=== PATIENT | female | born 1950 | race Caucasian/White ===

== ENCOUNTER 2020-07-18 12:27 | Outpatient (NON) | payer MEDICARE, SELFPAY ==
[2020-07-18 23:24] LABS: SARS-CoV-2 RNA PCR Positive
== END 2020-07-18 12:28 ==
PROVIDERS: PCP Family Medicine; Visit Provider Physician Assistant
DX: U07.1 COVID-19 (principal)
CPT/HCPCS: 87635; C9803; U0003

== ENCOUNTER 2020-09-04 09:41 | Outpatient (CLI) | payer MEDICARE, SELFPAY ==
--- NOTE | ~2020-09-04 | MM_ITS ---
EXAMINATION: MM screening janett BI w piedad HISTORY: Screening mammogram TECHNIQUE: Craniocaudal and mediolateral oblique 3-D tomosynthesis images were obtained and synthetic 2-D images were generated. CAD analysis was submitted and interpreted. COMPARISON: 12/12/2018, 12/09/2017, 12/08/2016 and lateral digital screening mammogram examinations BREAST PARENCHYMAL COMPOSITION: There are scattered areas of fibroglandular density. FINDINGS: There is no evidence of suspicious mass, calcification, or architectural distortion to sugg est malignancy in either breast. There has been no suspicious interval change. IMPRESSION: 1. No mammographic evidence of malignancy. 2. Recommend routine screening mammography in one year. BI-RADS Category 1: Negative Reviewed, dictated and finalized at location A. SUPERVISOR
--- NOTE | ~2020-09-04 | DEXA_ITS ---
Bone Density Report Name: Christie Aguilera Age: 70 Sex: Female Ethnicity: White Date of : 1950 Indication: osteopenia; Referring Provider: Mehrdad, Kristi Pitts Study: Bone densitometry was performed. Exam Date: September 04, 2020 Accession number: [id number] Bone Density: Region BMD T-score Z-score Classification AP Spine (L1-L4) 0.854 -1.8 0.2 Osteopenia Femoral Neck (Left) 0.636 -1.9 -0.2 Osteopenia Total Hip (Left) 0.801 -1.2 0.2 Osteopenia Total Hip Bilateral Avg 0.790 -1.3 0.1 Osteopenia Femoral Neck (Right) 0.620 -2.1 -0.4 Osteopenia Total Hip (Right) 0.777 -1.4 0.0 Osteopenia World Health Organization criteria for BMD impression classify patients as: Normal (T-score at or above -1.0), Osteopenia (T-score between -1.0 and -2.5), or Osteoporosis (T-score at or below -2.5). 10-year Fracture Risk(1): Major Osteoporotic Fracture 12% Hip Fracture 2.1% Reported Risk Factors: [place] (), Neck BMD=0.620, BMI=25.4 (1) FRAX(R) Version 3.08. Fracture probability calculated for an untreated patient. Fracture probability may be lower if the patient has received treatment. Previous Exams: Region Exam Age BMD T-score BMD Change BMD Change Date g/cm2 vs Baseline vs Previous AP Spine(L1-L4) 09/04/2020 70 0.854 -1.8 -0.197(-18.8%) -0.049(-5.4%)* 12/09/2017 67 0.903 -1.3 -0.148(-14.1%) 0.035(4.0%)* 11/13/2014 64 0.868 -1.6 -0.183(-17.4%) -0.057(-6.2%)# 10/12/2011 61 0.926 -1.1 -0.126(-12.0%) -0.123(-11.7%) 08/10/2007 57 1.048 0.0 -0.003(-0.3%) -0.003(-0.3%) 06/30/2004 53 1.051 0.0 Total Hip(Left) 09/04/2020 70 0.801 -1.2 -0.095(-10.6%) -0.026(-3.2%) 12/09/2017 67 0.828 -0.9 -0.068(-7.6%)# -0.001(-0.1%) 11/13/2014 64 0.829 -0.9 -0.067(-7.5%)# -0.026(-3.0%)# 10/12/2011 61 0.855 -0.7 -0.041(-4.6%)# -0.008(-0.9%)# 08/10/2007 57 0.862 -0.7 -0.034(-3.7%)* -0.034(-3.7%)* 06/30/2004 53 0.896 -0.4 Total Hip(Right) 09/04/2020 70 0.777 -1.4 -0.107(-12.1%) -0.049(-5.9%)* 12/09/2017 67 0.825 -1.0 -0.058(-6.6%)# 0.012(1.5%) 11/13/2014 64 0.813 -1.1 -0.070(-8.0%)# -0.014(-1.7%)# 10/12/2011 61 0.827 -0.9 -0.056(-6.3%)# -0.015(-1.7%)# 08/10/2007 57 0.842 -0.8 -0.041(-4.7%)* -0.041(-4.7%)* 06/30/2004 53 0.883 -0.5 *Denotes significance at 95% confidence level, LSC for AP Spine = 0.022 g/cm2, LSC for Total Hip = 0.027 g/cm2 Clinical Information Provided by Patient: Has used the follow
== END 2020-09-04 09:42 | disposition home or self-care (01) ==
PROVIDERS: Family Provider Family Medicine; PCP Family Medicine; Visit Provider Nurse Practitioner Obstetrics & Gynecology
DX: Z12.31 Encounter for screening mammogram for malignant neoplasm of breast (principal); Z13.820 Encounter for screening for osteoporosis; Z78.0 Asymptomatic menopausal state; M85.852 Other specified disorders of bone density and structure, left thigh; M85.851 Other specified disorders of bone density and structure, right thigh
CPT/HCPCS: 77063; 77067; 77080

== ENCOUNTER → 2021-08-12 08:47 | Outpatient (CLI) | payer MEDICARE, SELFPAY ==
[2021-08-13 03:58] LABS: SARS-CoV-2 RNA PCR Positive
== END ==
PROVIDERS: PCP Family Medicine; Visit Provider Physician Assistant
DX: U07.1 COVID-19 (principal); R68.83 Chills (without fever); R53.83 Other fatigue; R09.81 Nasal congestion
CPT/HCPCS: C9803; U0003; U0005

== ENCOUNTER 2021-09-08 09:34 | Outpatient (CLI) | payer MEDICARE, SELFPAY ==
--- NOTE | ~2021-09-08 | MM_ITS ---
EXAMINATION: MM screening janett BI w piedad HISTORY: Screening mammogram, family history of breast cancer in her mother and sister. TECHNIQUE: Craniocaudal and mediolateral oblique 3-D tomosynthesis images were obtained and synthetic 2-D images were generated. CAD analysis was submitted and interpreted. COMPARISON: 09/04/2020, 12/12/2018, 12/09/2017 BREAST PARENCHYMAL COMPOSITION: There are scattered areas of fibroglandular density. FINDINGS: There is no evidence of suspicious mass, calcification, or architectural distortion to sugg est malignancy in either breast. There has been no suspicious interval change. IMPRESSION: 1. No mammographic evidence of malignancy. 2. Recommend routine screening mammography in one year. BI-RADS Category 1: Negative Reviewed, dictated and finalized at location A. ORT PLANNER
== END 2021-09-08 09:35 | disposition home or self-care (01) ==
LOC: ANHIMG 09:36
PROVIDERS: PCP Family Medicine; Visit Provider Nurse Practitioner Obstetrics & Gynecology
DX: Z12.31 Encounter for screening mammogram for malignant neoplasm of breast (principal)
CPT/HCPCS: 77063; 77067

== ENCOUNTER → 2022-07-23 11:35 | Outpatient (CLI) | payer MEDICARE, SELFPAY ==
--- NOTE | ~2022-07-23 | XR_ITS ---
XR lumbar spine 2-3V DATE: 07/23/2022 11:53 INDICATION: Low back pain TECHNIQUE: AP, lateral, coned lateral lumbosacral views COMPARISON: None FINDINGS: There is diffuse osteopenia. There is mild loss of height biconcavity of L2 and to a greater extent L4 consistent with compression fractures. There is degenerative change at the apophyseal joints particularly L4-5 and L5-S1 with associated gra de 1 anterolisthesis at L4-5. Moderately severe degenerative disc disease at L5-S1. No bone destruction is evident. The included lower thoracic and lumbar pedicles are intact. The sacroiliac joints appear normal. IMPRESSION: Mild L2 and moderate L4 compression fractures Osteopenia Grade 1 anterolisthesis at L4-5 due to degenerative change at the apophyseal joints Moderately severe degenerative disease at L5-S1 Reviewed, dictated and finalized at location B. ECT MANAGEMENT DIRECTOR IMPRESSION: Mild L2 and moderate L4 compression fractures Osteopenia Grade 1 anterolisthesis at L4-5 due to degenerative change at the apophyseal remington ints Moderately severe degenerative disease at L5-S1
== END ==
PROVIDERS: PCP Family Medicine; Visit Provider Family Medicine
DX: M85.88 Other specified disorders of bone density and structure, other site (principal); M51.37 Other intervertebral disc degeneration, lumbosacral region; S32.020A Wedge compression fracture of second lumbar vertebra, initial encounter for closed fracture; S32.030A Wedge compression fracture of third lumbar vertebra, initial encounter for closed fracture; S32.040A Wedge compression fracture of fourth lumbar vertebra, initial encounter for closed fracture; X58.XXXA Exposure to other specified factors, initial encounter
CPT/HCPCS: 72100

== ENCOUNTER → 2022-09-09 16:12 | Outpatient (CLI) | payer MEDICARE, SELFPAY ==
--- NOTE | ~2022-09-09 | XR_ITS ---
EXAM: XR lumbar spine min 4V DATE: 09/09/2022 16:29 HISTORY: follow up wedge compression fx from 07-20-22 . COMPARISON: 07/23/2022. FINDINGS: 5 nonrib-bearing lumbar-type vertebral bodies. Pedicles intact. Increased height loss with increased inferior endplate deformity at L2, now moderate. Stable moderate height loss and superior endplate deformity at L4. Stable 4 mm anterolisthesis at L4-5. Mild disc space narrowing at L3-4 and L4-5. Severe disc space narrowing with vacuum phenomenon at L5-S1. Multilevel facet sclerosis and hyp ertrophy Atherosclerotic aortic calcification without evident aneurysm. IMPRESSION: Worsening compression deformity at L2. Stable moderate compression fracture at L4. Reviewed, dictated and finalized at location K. PRESSER
== END ==
PROVIDERS: PCP Family Medicine; Visit Provider Nurse Practitioner Adult Health
DX: S32.000A Wedge compression fracture of unspecified lumbar vertebra, initial encounter for closed fracture (principal)
CPT/HCPCS: 72110

== ENCOUNTER → 2022-09-21 08:31 | Outpatient (CLI) | payer MEDICARE, SELFPAY ==
--- NOTE | ~2022-09-21 | MR_ITS ---
MRI of the lumbar spine Clinical History: Fracture Technique: Axial T2-weighted images, and sagittal T1-weighted, T2-weighted, and T2 fat-sat images wer e acquired. Findings: There is an acute compression fracture at the inferior endplate region of L2, with loss of height and marrow edema with hypointense fracture line present. There is probable chronic compression fracture deformity of L4, with no marrow edema present. At L1-L2, there is no disc bulge or herniation. There is mild facet arthropathy. No spinal canal sten osis or neural foraminal narrowing. At L2-L3, there is minimal disc bulge and mild facet arthropathy. No spinal canal stenosis. Probable minimal bilateral neural foraminal narrowing. At L3-L4, there is mild disc bulge with facet arthropathy. No cole spinal canal stenosis. Neural for jenise are preserved. At L4-L5, there is mild disc bulge and facet arthropathy, with minimal compression of the thecal sac. Bilateral neural foramina are preserved. At L5-S1, there is disc bulge with advanced facet joint degenerative change. No spinal canal stenosis . There is moderate left neural foraminal narrowing and mild right neural foraminal narrowing. Paravertebral soft tissues are unremarkable. Impression: Acute compression fracture of L2, probably on a benign/osteoporotic basis. Mild chronic compression fracture deformity of L4. Mild degenerative spondylosis, as detailed above. Reviewed, dictated and finalized at [facility]. IATIVE CARE COORDINATOR Impression: Acute compression fracture of L2, probably on a benign/osteoporotic basis. Mild chronic compression fracture deformity of L4. Mild degenerative spondylosis, as detailed above.
== END ==
PROVIDERS: PCP Family Medicine; Visit Provider Nurse Practitioner Family
DX: M48.56XA Collapsed vertebra, not elsewhere classified, lumbar region, initial encounter for fracture (principal); M47.816 Spondylosis without myelopathy or radiculopathy, lumbar region
CPT/HCPCS: 72148

== ENCOUNTER 2022-11-09 08:17 | Outpatient (CLI) | payer MEDICARE, SELFPAY ==
--- NOTE | ~2022-11-09 | NM_ITS ---
EXAMINATION: NM denisa stress w perfusion DATE: 11/09/2022 10:30 INDICATION: Dyspnea on exertion. TECHNIQUE: Rest images were obtained following intravenous administration of 11 mCi Tc99m tetrofosmin (Myoview). The patient was infused intravenously with Lexiscan (regadenoson). Then, 33 mCi Tc99m tet rofosmin (Myoview) was administered intravenously, and stress images were obtained. Data was reconstr ucted into short axis and horizontal and vertical long axis SPECT images. Gated SPECT images were als o obtained. COMPARISON: None. FINDINGS: There is no definite reversible or fixed perfusion abnormality to suggest ischemia or infar ction. There is no segmental wall motion abnormality. Left ventricular ejection fraction measures 6 7%. IMPRESSION: 1. No definite ischemia or infarct. 2. Normal left ventricular ejection fraction measuring 67%. Reviewed, dictated and finalized at location A.
--- NOTE | 2022-11-09 08:21 | EST_ITS ---
Patient Info Name: Christie Aguilera Age: 72 years : 1950 Gender: Female Ht: 66 in Wt: 160 lbs BSA: 1.85 m2 HR: 70 bpm BP: 129 / 85 mmHg Exam Date: 11/09/2022 9:13 AM Exam Location: [facility] Stress Patient Status: Outpatient Admit Date: 11/09/2022 Staff Ordering Physician: Jaime Lewis MD Attending Provider: Jaime Lewis MD Exercise Technologist: Maddy Christie CT Exercise Physician: Wade Aviles DO Exam Type: CA stress denisa w NM Study Info Indications R06.09 - Other forms of dyspnea A regadenoson stress test was performed. Summary 1. 1. Negative lexiscan stress test for ischemic ST changes by ECG criteria. 2. 2. Frequent ventricular ectopics. 3. 3. Nuclear scan to follow and will be reported separately. Please correlate with it. 4. 4. Patient informed of the above results. Protocol: Lexiscan Stress ECG Details Stage: REST Duration (min): 1 min : 0 sec HR (bpm): 71 SBP (mmHg): 129 DBP (mmHg): 85 Stage: REST Duration (min): 8 min : 10 sec HR (bpm): 71 SBP (mmHg): 129 DBP (mmHg): 85 Stage: STAGE 1 Duration (min): 0 min : 59 sec HR (bpm): 94 SBP (mmHg): 142 DBP (mmHg): 91 Stage: RECOVERY Duration (min): 1 min : 0 sec HR (bpm): 95 SBP (mmHg): 142 DBP (mmHg): 91 Stage: RECOVERY Duration (min): 2 min : 0 sec HR (bpm): 91 SBP (mmHg): 142 DBP (mmHg): 91 Stage: RECOVERY Duration (min): 3 min : 0 sec HR (bpm): 86 SBP (mmHg): 112 DBP (mmHg): 87 Stage: RECOVERY Duration (min): 4 min : 0 sec HR (bpm): 91 SBP (mmHg): 112 DBP (mmHg): 87 Stage: RECOVERY Duration (min): 4 min : 44 sec HR (bpm): 86 SBP (mmHg): 128 DBP (mmHg): 83 Rest HR: 71 bpm Peak HR: 97 bpm Rest Sys BP: 129 mmHg Peak Sys BP: 142 mmHg Max Pred HR: 150 bpm % Max Pred HR: 65 % Target HR: 128 bpm Max RPP: 13,774 bpm*mmHg Termination Reason: Completed protocol Cardiac Symptoms: Shortness of breath Total Time: 1 min : 0 sec Rest Diaz BP: 85 mmHg Peak Diaz BP: 91 mmHg Total Dose: 0.4 mg Resting ECG Sinus rhythm, frequent PVC's, IRBBB. Stress ECG No ST changes. Arrhythmias None. Report Signatures
== END 2022-11-09 08:18 | disposition home or self-care (01) ==
PROVIDERS: PCP Family Medicine; Visit Provider Family Medicine
DX: R06.09 Other forms of dyspnea (principal)
CPT/HCPCS: 78452; 93017; A9502; J2785

== ENCOUNTER 2023-01-20 00:28 | Day surgery (SDC) | payer MEDICARE, SELFPAY ==
[2023-01-13 13:51] VITALS: BMI 26.6
--- NOTE | 2023-01-19 11:38 | PM.HPGS ---
History of Present Illness History of Present Illness Consent: Risks, benefits, and alternatives have been discussed and questions answered. Patient agrees to proceed with procedure. Chief complaint: hx colon polyps, neoplasm Narrative: Christie Aguilera is a 72 year old female referred for colon cancer screening. It has been about 5 years since her last examination. She has a history of polyps. Review of Systems Review of Systems: All systems reviewed & are unremarkable except as noted in HPI and below PMFSH Past Medical History Medical History Environmental allergies GERD without esophagitis History of colon polyps Osteopenia Surgical History Surgical History H/O tubal ligation (~1986) History of carpal tunnel release of both wrists (~2009) Family History Family History Father Family history of lung cancer Sibling Family history of malignant neoplasm of breast in first degree relative, Onset Age: 40 Mother Family history of malignant neoplasm of breast in first degree relative, Onset Age: 50 Social History Social History Smoking status: Never smoker Alcohol intake: current Alcohol use details: socially Substance use: never Substance use type: does not use Lack of Transportation: No Lack of Food: Never True Current Housing: I Have Housing Concerned About Future Housing: No Difficulty Paying Gas/Electric Bills: No Difficulty Paying for Meds: No Currently Unemployed: No Education: Associate Degree Difficulty w/ Childcare or Family Care: No Living arrangements: other Additional living arrangements comments: with Occupation/Education: retired Agree to blood products: Yes Meds Home Medications and Allergies Home Medications Medication Instructions Recorded Confirmed Type exxrrhptqfsd-dsnibbvp-ujtbglw-folic 1 tablet PO DAILY 11/06/21 01/13/23 History acid 400 mcg-vit K1 20 mcg tablet (One-A-Day Women's 50 Plus) loratadine 10 mg tablet (Claritin) 10 mg PO DAILY 07/01/22 01/13/23 History cholecalciferol (vitamin D3) 50 50 mcg PO DAILY #90 caps 12/17/22 01/13/23 Rx mcg (2,000 unit) capsule famotidine 20 mg tablet 20 mg PO DAILY #90 tabs 12/31/22 01/13/23 Rx Allergies Allergy/AdvReac Type Severity Reaction Status Date / Time fluticasone furoate Allergy Unknown Skin Verified 01/20/23 08:38 [Veramyst] Reaction peanut Allergy Unknown Congested Verified 01/20/23 08:38 Iodinated Contrast Media Allergy Redness of Verified 01/20/23 08:38 Skin shrimp Allergy Unknown Verified 01/20/23 08:38 Exam Const: General: alert Orientation/consciousness: patient oriented x3 Resp: Auscultation: clear to auscultation bilaterally Cardio: Rhythm: regular rhythm GI: GI Palp: Yes Soft to palpation and No Tenderness to palpation present (GI) Neuro: General: patient oriented x3 Assessment and Plan Assessment and plan (1) Colon cancer screening: Code(s): Z12.11 - Encounter for screening for malignant neoplasm of colon Status: Acute Assessment and Plan: Colonoscopy with possible biopsy or polypectomy or cautery or injection of substances.
--- NOTE | 2023-01-20 08:36 | WPDANESEPPF ---
Anes - Initial Pre Proc Eval Procedure: Operation Date: 01/20/23 10:00 Proposed Procedures p Colonoscopy - Dylan Dahl MD Date/Time: 01/20/23 08:36 Surgeon: Dylan Dahl MD Pre Op Diagnosis: hx colon polyps, neoplasm Patient Data Age: 72 Gender: F Height: 1.68 m Weight: 75 kg Allergies Allergy/AdvReac Type Severity Reaction Status Date / Time fluticasone furoate Allergy Unknown Skin Verified 01/20/23 08:38 [Veramyst] Reaction peanut Allergy Unknown Congested Verified 01/20/23 08:38 Iodinated Contrast Media Allergy Redness of Verified 01/20/23 08:38 Skin shrimp Allergy Unknown Verified 01/20/23 08:38 Home Medications Medication Instructions Recorded Confirmed Type vyrpxvaaadsb-feuteybt-bfocubd-folic 1 tablet PO DAILY 11/06/21 01/13/23 History acid 400 mcg-vit K1 20 mcg tablet (One-A-Day Women's 50 Plus) loratadine 10 mg tablet (Claritin) 10 mg PO DAILY 07/01/22 01/13/23 History cholecalciferol (vitamin D3) 50 50 mcg PO DAILY #90 caps 12/17/22 01/13/23 Rx mcg (2,000 unit) capsule famotidine 20 mg tablet 20 mg PO DAILY #90 tabs 12/31/22 01/13/23 Rx Patient hx anesthesia problems: none Family hx anesthesia problems: none Results Review: All pre-operative results and documents have been reviewed as part of the pre-operative evaluation. [facility] Past Medical History Medical History (Updated 01/19/23 @ 11:39 by Dylan Dahl MD) Environmental allergies GERD without esophagitis History of colon polyps Osteopenia Surgical History Surgical History H/O tubal ligation (~1986) History of carpal tunnel release of both wrists (~2009) Family History Family History Father Family history of lung cancer Sibling Family history of malignant neoplasm of breast in first degree relative, Onset Age: 40 Mother Family history of malignant neoplasm of breast in first degree relative, Onset Age: 50 Social History Social History (Reviewed 08/04/22 @ 13:04 by APOLINAR Greco Smoking status: Never smoker Alcohol intake: current Alcohol use details: socially Substance use: never Substance use type: does not use Lack of Transportation: No Lack of Food: Never True Current Housing: I Have Housing Concerned About Future Housing: No Difficulty Paying Gas/Electric Bills: No Difficulty Paying for Meds: No Currently Unemployed: No Education: Associate Degree Difficulty w/ Childcare or Family Care: No Living arrangements: other Additional living arrangements comments: with Occupation/Education: retired Agree to blood products: Yes Anes - Eval Final PreProcedure Day of Procedure 01/20/23 08:36 Patient weight: overweight Heart: regular rate and rhythm Lungs: clear to auscultation and normal air movement Airway: Mallampati scale class II Neurological: alert and oriented Last oral intake: >/= 8 hours ASA classification: II Emergent: no Anesthetic plan: proceed Anesthesia type and monitoring: general GIVS Results Review: All pre-operative results and documents have been reviewed as part of the pre-operative evaluation. Informed Consent: The patient's anesthetic plan and its attendant risks and benefits were discussed with the patient/family/POA. Questions were solicited and answers provided to the satisfaction of the patient/family/POA.
[2023-01-20 08:39] VITALS: BP 137/87; PULSE 77; RESP 20; TEMP 36.3; O2SAT 100
[2023-01-20] MEDS: LACTATED RINGERS 1,000 ML 150 ML IV CONT (09:02)
[2023-01-20] MEDS: SIMETHICONE ORAL SUSPENSION 20 MG/0.3 ML 30 ML BOTTLE 0.6 ML IRRIGATION (09:48)
[2023-01-20 10:02] VITALS: BP 111/66; PULSE 67; RESP 14; O2SAT 100
[2023-01-20 10:12] VITALS: BP 128/53; PULSE 66; RESP 18; O2SAT 100
[2023-01-20 10:22] VITALS: BP 133/84; PULSE 67; RESP 18; O2SAT 100
== END 2023-01-20 10:37 | disposition home or self-care (01) ==
PROVIDERS: PCP Family Medicine; Visit Provider Internal Medicine Gastroenterology
PROC: 0DJD8ZZ Inspection of Lower Intestinal Tract, Via Natural or Artificial Opening Endoscopic (ICD-10-PCS; CPT 45378; principal; 2023-01-20 10:00)
DX: Z12.11 Encounter for screening for malignant neoplasm of colon (principal); K57.30 Diverticulosis of large intestine without perforation or abscess without bleeding; Z86.010 Personal history of colon polyps; K21.9 Gastro-esophageal reflux disease without esophagitis; M85.80 Other specified disorders of bone density and structure, unspecified site
CPT/HCPCS: G0105; J2001; J2704; J7120

== ENCOUNTER 2023-07-20 11:34 | Outpatient (CLI) | payer MEDICARE, SELFPAY | END 2023-07-20 11:35 | disposition home or self-care (01) | LOC: CHSIMG 11:37 | PROVIDERS: PCP Family Medicine; Visit Provider Nurse Practitioner Obstetrics & Gynecology | DX: M85.80 Other specified disorders of bone density and structure, unspecified site (principal) | CPT/HCPCS: 99199 ==

== ENCOUNTER 2023-07-22 12:53 | Outpatient (CLI) | payer MEDICARE, SELFPAY ==
--- NOTE | ~2023-07-22 | DEXA_ITS ---
Bone Density Report Name: CORNELIUS ORTEGA Age: 73 Sex: Female Ethnicity: White Date of : 1950 Indication: osteopenia; monitoring treatment; height loss; inflammatory bowel disease; prior fracture; postmenopausal Referring Provider: AMAIRANI, MIRIAM Pitts Study: Bone densitometry was performed. Exam Date: July 22, 2023 Accession number: [id number] Bone Density: Region BMD T-score Z-score Classification AP Spine(L1, L3, L4) 0.905 -1.3 0.8 Osteopenia Femoral Neck (Left) 0.631 -2.0 -0.1 Osteopenia Total Hip (Left) 0.776 -1.4 0.2 Osteopenia Femoral Neck (Right) 0.604 -2.2 -0.4 Osteopenia Total Hip (Right) 0.731 -1.7 -0.2 Osteopenia Total Hip Mean 0.754 -1.6 0.0 Osteopenia World Health Organization criteria for BMD impression classify patients as: Normal (T-score at or above -1.0), Osteopenia (T-score between -1.0 and -2.5), or Osteoporosis (T-score at or below -2.5). 10-year Fracture Risk: FRAX not reported because: Prior hip or vertebral fracture Treated for osteoporosis Previous Exams: Region Exam Age BMD T-score BMD Change BMD Change Date g/cm2 vs Baseline vs Previous AP Spine (L1,L3-L4) 07/22/2023 73 0.905 -1.3 -0.038 (-4.0%) 0.037 (4.3%)* 09/04/2020 70 0.868 -1.7 -0.075 (-8.0%) -0.052 (-5.6%) 12/09/2017 67 0.920 -1.2 -0.023 (-2.5%) 0.046 (5.2%)* 11/13/2014 64 0.874 -1.6 -0.069 (-7.3%) -0.069 (-7.3%) 10/12/2011 61 0.943 -1.0 Total Hip(Left) 07/22/2023 73 0.776 -1.4 -0.078 (-9.2%) -0.025 (-3.1%) 09/04/2020 70 0.801 -1.2 -0.053 (-6.2%) -0.026 (-3.2%) 12/09/2017 67 0.828 -0.9 -0.027 (-3.1%) -0.001 (-0.1%) 11/13/2014 64 0.829 -0.9 -0.026 (-3.0%) -0.026 (-3.0%) 10/12/2011 61 0.855 -0.7 Total Hip(Right) 07/22/2023 73 0.731 -1.7 -0.096 (-11.6% -0.046 (-5.9%) 09/04/2020 70 0.777 -1.4 -0.051 (-6.1%) -0.049 (-5.9%) 12/09/2017 67 0.825 -1.0 -0.002 (-0.2%) 0.012 (1.5%) 11/13/2014 64 0.813 -1.1 -0.014 (-1.7%) -0.014 (-1.7%) 10/12/2011 61 0.827 -0.9 *Denotes significance at 95% confidence level, LSC for AP Spine = 0.022 g/cm2, LSC for Total Hip = 0.027 g/cm2 # Denotes dissimilar scan types or analysis methods Clinical Information Provided by Patient: Have had a previous hip or vertebral fracture Has had a low trauma fracture Is being treated for osteoporosis Has used the following medications: Vitamin D, Calcium Has the following medical conditions: Inflammatory bowel diseases Patient maximum height was 66.5 Drguy
== END 2023-07-22 12:54 | disposition home or self-care (01) ==
PROVIDERS: PCP Family Medicine; Visit Provider Nurse Practitioner Obstetrics & Gynecology
DX: M85.89 Other specified disorders of bone density and structure, multiple sites (principal)
CPT/HCPCS: 77080

== ENCOUNTER 2023-07-28 08:01 | Outpatient (CLI) | payer MEDICARE, SELFPAY ==
[2023-07-28 12:40] LABS: Basophils Percent Auto 0.4 % (0.2-1.2); Eosinophils Percent Auto 0.8 % (0-4.4); Hematocrit 44.5 % (37.0-47.0); Hemoglobin 14.4 g/dL (12.0-15.0); Immature Granulocyte Absolute 0.01 K/mm3 (0.00-0.031); Immature Granulocyte Percent A 0.2 % (0-0.5); Lymphocytes Absolute Auto 1.54 K/mm3 (0.9-3.2); Lymphocytes Percent Auto 29.3 % (18.3-44.2); Mean Corpuscular HGB Conc 32.4 g/dl (32-36); Mean Corpuscular Hemoglobin 30.6 pg (26-34); Mean Corpuscular Volume 94.7 fl (80-100); Mean Platelet Volume 9.6 fl (7.4-10.4); Monocytes Absolute Auto 0.6 K/mm3 (0.1-0.6); Monocytes Percent Auto 11.2 % (2.6-8.5); Neutrophils Absolute Auto 3.1 K/mm3 (1.3-6.7); Neutrophils Percent Auto 58.1 % (45.5-73.1); Platelet Count Result 299 k/mm3 (150-375); Red Cell Distribution Width 12.7 % (11.5-14.5); White Blood Count 5.3 K/mm3 (4.5-10.0)
[2023-07-28 12:51] LABS: Alanine Aminotransferase 22 U/L (6-35); Albumin Level 4.4 g/dL (3.5-5.1); Alkaline Phosphatase 87 U/L (38-126); Anion Gap 8 mmol/L (8-16); Aspartate Amino Transferase 40 U/L (14-36); Bilirubin,Total 0.6 mg/dL (0.2-1.3); Blood Urea Nitrogen 15 mg/dL (7-17); Calcium 9.4 mg/dL (8.4-10.2); Carbon Dioxide 28 mmol/L (22-30); Chloride 102 mmol/L (98-107); Cholesterol 241 mg/dL (0-200); Estimated Glomerular Filt Rate > 60; Glucose 83 mg/dL (65-110); HDL Direct 89 mg/dL; Potassium 3.7 mmol/L (3.4-5.0); Sodium 138 mmol/L (137-145); Triglycerides 70 mg/dL (<150)
[2023-07-28 13:01] LABS: LDL Cholesterol Direct 101 mg/dL
[2023-07-28 13:16] LABS: Vitamin D 25 Hydroxy 54.9 ng/mL
[2023-07-28 13:28] LABS: Thyroid Stimulating Hormone Reflex 0.978 uIU/mL (0.465-4.68)
== END 2023-07-28 08:02 | disposition home or self-care (01) ==
PROVIDERS: PCP Family Medicine; Visit Provider Family Medicine
DX: E55.9 Vitamin D deficiency, unspecified (principal); E53.8 Deficiency of other specified B group vitamins; Z13.29 Encounter for screening for other suspected endocrine disorder; E78.5 Hyperlipidemia, unspecified; M85.80 Other specified disorders of bone density and structure, unspecified site
CPT/HCPCS: 36415; 80053; 80061; 82306; 82607; 84443; 85025

== ENCOUNTER 2023-09-13 09:00 | Outpatient (CLI) | payer MEDICARE, SELFPAY ==
[2023-09-13 19:15] LABS: Alanine Aminotransferase 19 U/L (6-35); Albumin Level 4.2 g/dL (3.5-5.1); Alkaline Phosphatase 84 U/L (38-126); Anion Gap 6 mmol/L (8-16); Aspartate Amino Transferase 27 U/L (14-36); Bilirubin,Total 0.6 mg/dL (0.2-1.3); Blood Urea Nitrogen 10 mg/dL (7-17); Calcium 9.4 mg/dL (8.4-10.2); Carbon Dioxide 29 mmol/L (22-30); Chloride 105 mmol/L (98-107); Estimated Glomerular Filt Rate > 60; Glucose 95 mg/dL (65-110); Potassium 4.3 mmol/L (3.4-5.0); Sodium 140 mmol/L (137-145)
== END 2023-09-13 09:01 | disposition home or self-care (01) ==
LOC: ANHGOSHLAB 09:01
PROVIDERS: PCP Family Medicine; Visit Provider Family Medicine
DX: R74.01 Elevation of levels of liver transaminase levels (principal)
CPT/HCPCS: 36415; 80053

== ENCOUNTER 2023-10-05 08:00 | Outpatient (RCR) | payer MEDICARE, SELFPAY ==
--- NOTE | 2023-08-05 16:21 | OPREHPOC ---
Outpatient Therapy Plan of Care This is a Multidisciplinary Plan of Care that may contain components documented by all disciplines (PT, OT, and ST.) PT Problem 1 PT Problem #1 Knowledge Deficit PT Goal 1 Goal Pt to be IND with issued HEP Target Visit 8 PT Problem 2 PT Problem #2 Pain PT Goal 1 Goal Pt to report pain no greater than 3/10 in the last week Target Visit 8 PT Goal 2 Goal Pt to report 75% improvement in overall symptoms. Target Visit 8 PT Problem 3 PT Problem #3 Impaired Functional Mobil PT Goal 1 Goal Pt to demonstrate a floor to stand transfers without UE support. Target Visit 8 PT Goal 2 Goal Pt to demonstrate a 20lb lift and carry from ground level Target Visit 8 PT Problem 4 PT Problem #4 Impaired Functional Mobil PT Goal 1 Goal Pt to report being able to wash dishes without an increase in pain Target Visit 8
--- NOTE | 2023-08-05 16:21 | PTOPEVAL1 ---
Assessment and note entered by George Lopez, PT, DPT Evaluation Information Assessment Status Evaluation Diagnosis low back pain Subjective Information Pt states she broke her back a year ago, and had a couple of months of therapy earlier this year. She states she had a bone density scan earlier this year and it showed decreased density. Pt reports mild pain from her waist to her ribs. She states she is very independent. Reported Pain Level Pain Score 2: Self Report Assessment PT Clinical Summary Christie presents to therapy today for her initial evaluation with a diagnosis of low back pain. Today she demonstrate poor movements mechanics, adding extra stress to the lumbar spine. She demonstrates mild weakness in her hips jennifer. Skilled therapy services are indicated to address the deficits noted above, to improve body mechanics , to education on HEP, and to promote improved functional mobility. Plan of Care Interventions Electrical Stimulation,Gait Training,Hot Pack/Cold Pack,Manual Therapy,Neuro Re-education,Patient/ Caregiver Educati,Therapeutic Activities, Therapeutic Exercise PT Services Indicated Yes Treatment Frequency and 2x/wk for 8 visits Duration These treatments will address the objective and functional deficits as defined above. The patient will be advanced safely and appropriately in order for the patient to progress towards his/her prior level of function. Additional exercises will be introduced and as well as a comprehensive home exercise program upon discharge, if needed, ?to ensure carryover of functional gains achieved in the clinic. This treatment plan has been reviewed and agreement upon by the patient.
--- NOTE | 2023-09-03 13:33 | PTOPPROG ---
Assessment and note entered by George Lopez, PT, DPT Evaluation Information Assessment Status Progress Diagnosis low back pain Subjective Information Pt states her back is doing better, she states using proper body mechanics is getting easier and is starting to feel more natural. She states her knee continues to limit her mobility. Assessment PT Clinical Summary Christie presents to therapy today for her progress report following 4 visits of skilled therapy to treat her diagnosis of low back pain. Today she demonstrate improved but still decreased hip strength in all planes, decreased functional mobility, and pain that limits mobility. She is progressing well towards her therapy goals. Continuation of skilled therapy services are indicated to address the deficits noted above, to improve body mechanics, to education on HEP, and to promote improved functional mobility. Plan of Care Interventions Electrical Stimulation,Gait Training,Hot Pack/Cold Pack,Manual Therapy,Neuro Re-education,Patient/ Caregiver Educati,Therapeutic Activities, Therapeutic Exercise PT Services Indicated Yes Treatment Frequency and 1x/wk for 4 visits Duration These treatments will address the objective and functional deficits as defined above. The patient will be advanced safely and appropriately in order for the patient to progress towards his/her prior level of function. Additional exercises will be introduced and as well as a comprehensive home exercise program upon discharge, if needed, ?to ensure carryover of functional gains achieved in the clinic. This treatment plan has been reviewed and agreement upon by the patient.
--- NOTE | 2023-10-05 08:55 | PTOPDC ---
Assessment and note entered by George Lopez, PT, DPT Evaluation Information Assessment Status Discharge Diagnosis low back pain Subjective Information Pt states her back is doing pretty good. She states she will have good days and bad days, currently is having a minor pain in her R buttock. She reports mild leg stiffness after getting done with her exercises. She states she is getting better at reminding herself to sit up straighter and use better body mechanics. Pt states she was able to get up and down from the ground without needing assist to get back up. Reported Pain Level Pain Score 0,2: Self Report Assessment PT Clinical Summary Christie presents to therapy today for her progress report following 9 visits of skilled therapy to treat her diagnosis of low back pain. Today she reports minimal pain with functional ADLs for the last 2 weeks. She demonstrates improved body mechanics, improved core strength, and improve functional mobility. She no longer requires skilled services and will be discharged at this time. Plan of Care PT Services Indicated No
== END 2023-10-05 10:00 | disposition home or self-care (01) ==
LOC: ANHGOSHPT 08:00
PROVIDERS: PCP Family Medicine; Visit Provider Family Medicine
DX: M54.50 Low back pain, unspecified (principal); M25.661 Stiffness of right knee, not elsewhere classified; M25.662 Stiffness of left knee, not elsewhere classified
CPT/HCPCS: 97110; 97116; 97140; 97161; 97530

== ENCOUNTER 2023-11-17 09:59 | Outpatient (CLI) | payer MEDICARE, SELFPAY ==
--- NOTE | ~2023-11-17 | MM_ITS ---
EXAMINATION: MM screening [facility] BI w piedad HISTORY: Screening TECHNIQUE: Craniocaudal and mediolateral oblique 3-D tomosynthesis images were obtained and synthetic 2-D images were generated. CAD analysis was submitted and interpreted. COMPARISON: Comparison to multiple prior studies sequentially, with oldest reviewed study dated 09/04. BREAST PARENCHYMAL COMPOSITION: There are scattered areas of fibroglandular density. FINDINGS: There is no evidence of suspicious mass, calcification, or architectural distortion to sugg est malignancy in either breast. There has been no suspicious interval change. IMPRESSION: 1. No mammographic evidence of malignancy. 2. Recommend routine screening mammography in one year. BI-RADS Category 1: Negative Reviewed, dictated and finalized at location A.
== END 2023-11-17 10:00 | disposition home or self-care (01) ==
LOC: ANHIMG 10:01
PROVIDERS: PCP Family Medicine; Visit Provider Nurse Practitioner Obstetrics & Gynecology
DX: Z12.31 Encounter for screening mammogram for malignant neoplasm of breast (principal)
CPT/HCPCS: 77063; 77067

== ENCOUNTER 2024-06-13 14:21 | Outpatient (CLI) | payer MEDICARE, SELFPAY | END 2024-06-13 14:22 | disposition home or self-care (01) | PROVIDERS: PCP Family Medicine; Visit Provider Family Medicine | DX: R39.9 Unspecified symptoms and signs involving the genitourinary system (principal) | CPT/HCPCS: 87086 ==

== ENCOUNTER 2024-06-22 11:05 | Outpatient (CLI) | payer MEDICARE, SELFPAY ==
--- NOTE | ~2024-06-22 | XR_ITS ---
Lumbosacral Spine: AP, oblique, and lateral views Clinical History: Pain COMPARISON: 09/09/2022 Findings: Status post interval vertebroplasty at L2. There is severe facet arthropathy from L2 throug h S1. There is stable grade 1 anterolisthesis of L4 over L5. There is advanced degenerative disc narr owing at L5-S1. The sacroiliac joints are normally outlined. Impression: Interval L2 vertebroplasty. Stable grade 1 anterolisthesis of L4 over L5. Severe, extensive facet arthropathy. Reviewed, dictated and finalized at location M. TING PULLER Impression: Interval L2 vertebroplasty. Stable grade 1 anterolisthesis of L4 over L5. Severe, extensive facet arthropathy.
== END 2024-06-22 11:06 | disposition home or self-care (01) ==
PROVIDERS: PCP Family Medicine; Visit Provider Family Medicine
DX: M54.50 Low back pain, unspecified (principal); M43.16 Spondylolisthesis, lumbar region; M47.816 Spondylosis without myelopathy or radiculopathy, lumbar region; Z48.811 Encounter for surgical aftercare following surgery on the nervous system
CPT/HCPCS: 72110

== ENCOUNTER 2024-09-13 12:30 | Outpatient (RCR) | payer MEDICARE, SELFPAY ==
--- NOTE | 2024-07-03 14:13 | OPREHPOC ---
Outpatient Therapy Plan of Care This is a Multidisciplinary Plan of Care that may contain components documented by all disciplines (PT, OT, and ST.) PT Problem 1 PT Problem #1 Knowledge Deficit PT Goal 1 Goal / Goal Update Pt to be IND with issued HEP Target Visit 8 PT Problem 2 PT Problem #2 Pain PT Goal 1 Goal / Goal Update 1. Pt to report back pain no greater than 3/10 in the last week. 2. 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 Target Visit 8 PT Problem 3 PT Problem #3 Impaired Functional Mobil PT Goal 1 Goal / Goal Update 1. Pt to demonstrate a function lift and carry of 20lb from ground level without an increase in symptoms. 2. Pt to demonstrate a floor transfer without support and without an increase in symptoms. Target Visit 8
--- NOTE | 2024-07-03 14:14 | PTOPEVAL1 ---
Assessment and note entered by George Lopez, PT, DPT Evaluation Information Assessment Status Evaluation Diagnosis low back pain ICD-10 Condition Codes (PT) Pain in low back M54.50 Subjective Information Pt states a couple of weeks ago she had a sciatic nerve flair up, in her R hip for a day, and her L hip for a couple of days. She states while her L sciatic nerve was bothering her so much, she was really stiffening up, was unable to walk or get out of bed d/t pain. She states randomly she was able to walk again without difficult and her pain has gotten much better. 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 She states she She does not recall an event that caused her pain to start. Reported Pain Level Pain Score 1: Self Report Assessment PT Clinical Summary Pt presents to therapy today for her initial evaluation with a diagnosis of chronic low back pain. Today she demonstrates decreased lumbar mobility, a sway back posture in standing, and decreased functional mobility d/t poor lifting mechanics. Pt demonstrates asymmetric pelvic postures in supine. Pt ambulates with limited lumbar motion and sway back posturing. Skilled therapy services are indicated to improve lumbar mobility, body mechanics, and to educate on proper lifting mechanics. Plan of Care Interventions Electrical Stimulation,Gait Training,Hot Pack/Cold Pack,Manual Therapy,Neuro Re-education,Patient/ Caregiver Educati,Therapeutic Activities, Therapeutic Exercise PT Services Indicated Yes Treatment Frequency and 1x/wk for 8 visits Duration These treatments will address the objective and functional deficits as defined above. The patient will be advanced safely and appropriately in order for the patient to progress towards his/her prior level of function. Additional exercises will be introduced and as well as a comprehensive home exercise program upon discharge, if needed, ?to ensure carryover of functional gains achieved in the clinic. This treatment plan has been reviewed and agreement upon by the patient.
--- NOTE | 2024-08-17 14:36 | OPREHPOC ---
Outpatient Therapy Plan of Care This is a Multidisciplinary Plan of Care that may contain components documented by all disciplines (PT, OT, and ST.) PT Problem 1 PT Problem #1 Knowledge Deficit PT Goal 1 Goal / Goal Update Pt to be IND with issued HEP 08/17/24: met Target Visit 8 Progress Met PT Problem 2 PT Problem #2 Pain PT Goal 1 Goal / Goal Update 1. Pt to report back pain no greater than 3/10 in the last week. 2. 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 08/17/24: 1. not met 2. progressing Target Visit 8 Progress Partially Met PT Problem 3 PT Problem #3 Impaired Functional Mobility PT Goal 1 Goal / Goal Update 1. Pt to demonstrate a function lift and carry of 20lb from ground level without an increase in symptoms. 2. Pt to demonstrate a floor transfer without support and without an increase in symptoms. 08/17/24: 1-2. progressing Target Visit 8 Progress Partially Met
--- NOTE | 2024-08-17 14:36 | PTOPPROG ---
Assessment and note entered by George Lopez, PT, DPT Evaluation Information Assessment Status Progress Diagnosis low back pain ICD-10 Condition Codes (PT) Pain in low back M54.50 Subjective Information Pt states she has noticed some improvements, she states she is sure her improvements have been limited d/t her traveling and being sick for the last couple of weeks. She states she has become more aware of her body position during day to day tasks. She states her pain is worse first thing in the morning. Assessment PT Clinical Summary Pt presents to therapy today for her progress report following 5 visits of skilled therapy to treat her diagnosis of chronic low back pain. Today she demonstrates improved core strength and improved awareness with lifting mechanics but still requires cueing. She is progressing well towards her therapy goals. Continuation of skilled therapy services are indicated to further improve lumbar mobility, body mechanics, and to educate on proper lifting mechanics. Plan of Care Interventions Electrical Stimulation,Gait Training,Hot Pack/Cold Pack,Manual Therapy,Neuro Re-education,Patient/ Caregiver Education,Therapeutic Activities, Therapeutic Exercise PT Services Indicated Yes Treatment Frequency and 1x/wk for 6 visits Duration These treatments will address the objective and functional deficits as defined above. The patient will be advanced safely and appropriately in order for the patient to progress towards his/her prior level of function. Additional exercises will be introduced and as well as a comprehensive home exercise program upon discharge, if needed, ?to ensure carryover of functional gains achieved in the clinic. This treatment plan has been reviewed and agreement upon by the patient.
--- NOTE | 2024-09-13 14:19 | OPREHPOC ---
Outpatient Therapy Plan of Care This is a Multidisciplinary Plan of Care that may contain components documented by all disciplines (PT, OT, and ST.) PT Problem 1 PT Problem #1 Knowledge Deficit PT Goal 1 Goal / Goal Update Pt to be IND with issued HEP 08/17/24: met Target Visit 8 Progress Met PT Problem 2 PT Problem #2 Pain PT Goal 1 Goal / Goal Update 1. Pt to report back pain no greater than 3/10 in the last week. 2. 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 08/17/24: 1. not met 2. progressing 09/12/24: 1. met 2. met Target Visit 8 Progress Partially Met PT Problem 3 PT Problem #3 Impaired Functional Mobility PT Goal 1 Goal / Goal Update 1. Pt to demonstrate a function lift and carry of 20lb from ground level without an increase in symptoms. 2. Pt to demonstrate a floor transfer without support and without an increase in symptoms. 08/17/24: 1-2. progressing 09/12/24: 1-2. met Target Visit 8 Progress Partially Met
--- NOTE | 2024-09-13 14:19 | PTOPDC ---
Assessment and note entered by George Lopez, PT, DPT Evaluation Information Assessment Status Discharge Diagnosis low back pain ICD-10 Condition Codes (PT) Pain in low back M54.50 Subjective Information Pt states she is doing really well. She has been adding in some daily walking without an increase in pain. She states she gets a little sore when getting in and out of the car. Reported Pain Level Pain Score 0: Self Report Assessment PT Clinical Summary Pt presents to therapy today for her progress report following 9 visits of skilled therapy to treat her diagnosis of chronic low back pain. Today she demonstrates improved core strength and improved awareness with lifting mechanics. She has met all of her therapy goals and no longer requires skilled services. She will be discharged at this time to continue her HEP. Plan of Care PT Services Indicated No
== END 2024-09-13 15:48 | disposition home or self-care (01) ==
LOC: ANHGOSHPT 12:30
PROVIDERS: PCP Family Medicine; Visit Provider Family Medicine
DX: M54.50 Low back pain, unspecified (principal); G89.29 Other chronic pain; M53.3 Sacrococcygeal disorders, not elsewhere classified
CPT/HCPCS: 97110; 97140; 97161; 97530

== ENCOUNTER 2024-11-22 08:33 | Outpatient (CLI) | payer MEDICARE, SELFPAY ==
--- NOTE | ~2024-11-22 | MM_ITS ---
EXAMINATION: MM screening janett BI w piedad HISTORY: Screening TECHNIQUE: Craniocaudal and mediolateral oblique 3-D tomosynthesis images were obtained and synthetic 2-D images were generated. CAD analysis was submitted and interpreted. COMPARISON: Comparison to multiple prior studies sequentially, with oldest reviewed study dated 12/08. BREAST PARENCHYMAL COMPOSITION: Not dense: There are scattered areas of fibroglandular density. FINDINGS: There is no evidence of suspicious mass, calcification, or architectural distortion to sugg est malignancy in either breast. There has been no suspicious interval change. IMPRESSION: 1. No mammographic evidence of malignancy. 2. Recommend routine screening mammography in one year. BI-RADS Category 1: Negative Reviewed, dictated and finalized at location A.
--- OUTSIDE RECORDS SUMMARY | 2024-11-22 08:58 | XMS_ITS | Encounter Summary ---
Author Organization [facility] Address [address] [facility] [address] [facility] [place] [address] Care Team Providers Care First Coat Sander Name Role Phone Unavailable Primary Care Provider Unavailabl e Encounter Details Date Type Department Care Team (Late st Contact Info) Description 01/17/2019 Lab Requisition [facility] Care DermPath Lab [address] [facility] [place] [id number] Traci Sutton MD [address] [facility] [address] [place] [address] Social History Tobacco Use Types Packs/Day Years Used Date Smoking Tobacco: Never Assessed Sex and Gender Information Value Date Recorded Sex Assigned at Not on file Gender Identity Not on file Sexual Orientation Not on file documented as of this encounter Plan of Treatment Not on file documented as of this encounter Procedures Procedure Name Priority Date/Time Associated Diagnosis Comments DERMATOPATHOLOGY Routine 01/16/2019 12:0 0 AM CDT documented in this encounter Results * DERMATOPATHOLOGY (01/16/2019 12:00 AM CDT) Case Report Dermatopathology Report Case: [id number] Authorizing Provider: Traci Sutton MD Collected: 01/16/2019 12:00 AM Pathologist: Anna Varela MD Received: 01/17/2019 06:09 AM Specimen: Skin, right lower lip 9 1:08 PM CDT DERMATOPATHOLOGY LABORATORY Final Diagnosis Specimen A. 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 The specimen consists of a shave biopsy measuring 4x4x1 mm. Jar 0. 1:08 PM CDT DERMATOPATHOLOGY LABORATORY Microscopic Description Specimen A. SKIN, right lower lip: The specimen is taken from a mucocutaneous surface and shows acanthosis and prominent pigmentation in the basal layer. The keratinocytes are mature and there is a minimal increase in melanocytes. 1:08 PM CDT DERMATOPATHOLOGY LABORATORY Disclaimer An external and internal positive and negative controls are appropriate for the histochemical, immunohistochemical and immunofluorescence stain(s) in this case (if any), except where stated explicitly. The performance characteristics of the stain(s) cited in this report were developed and its performance characteristic determined by the Dermatopathology Laboratory at [facility], directed by Dr. Georgie Barr. These tests need not be, and therefore are not, approved by the [place] Food and Drug Administration. The tests are used for clinical purposes. Billing Codes Specimen Charges Stain Charges 70457 1 1:08 PM CDT DERMATOPATHOLOGY LABORATORY Embedded Images 1:08 PM CDT DERMATOPATHOLOGY LABORATORY Pathology/Cytolog y TISSUE SPECIMEN FROM SKIN / Unknown 01/16/2019 01/17/2019 6:09 AM CDT Traci Sutton MD LAB - PATHOLOGY/CYT OLOGY ORDERABLES DERMATOPATHOLOGY LABORATORY [facility] - Department of Dermatology [address] [place] [address] 5th Floor Lab [address] [phone] documented in this encounter Visit Diagnoses Not on filedocumented in this encounter
--- OUTSIDE RECORDS SUMMARY | 2024-11-22 08:58 | XMS_ITS | Encounter Summary ---
Author Organization [facility] Address [address] [place] [address] Care Team Providers Care Senior Litigation Paralegal Name Role Phone Unavailable Primary Care Provider Unavailabl e Encounter Details Date Type Department Care Team (Late st Contact Info) Description 08/29/2019 Lab Requisition [facility] Lab [address] [facility] [place] [phone] Kiana Arambula DO [address] [facility] [address] [place] [address] Social History Tobacco Use Types Packs/Day Years Used Date Smoking Tobacco: Never Assessed Sex and Gender Information Value Date Recorded Sex Assigned at Not on file Gender Identity Not on file Sexual Orientation Not on file documented as of this encounter Plan of Treatment Not on file documented as of this encounter Procedures Procedure Name Priority Date/Time Associated Diagnosis Comments DERMATOPATHOLOGY Routine 08/28/2019 12:0 0 AM [facility] documented in this encounter Results * DERMATOPATHOLOGY (08/28/2019 12:00 AM [facility]) Case Report Dermatopathology Report Case: [id number] Authorizing Provider: Kiana Arambula DO Collected: 08/28/2019 12:00 AM Ordering Location: [facility] Received: 08/29/2019 07:01 AM Pathologist: Anna Varela MD Specimens: A) - Skin, mid chest B) - Skin, left upper back 0 1:50 PM [facility] DERMATOPATHOLOGY LABORATORY Final Diagnosis Specimen A. 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 SKIN, left upper back: LICHEN PLANUS-LIKE KERATOSIS (BENIGN LICHENOID KERATOSIS) (L82.1) 0 1:50 PM [facility] DERMATOPATHOLOGY LABORATORY Clinical History A-B: R/O BCC vs LPLK. 0 1:50 PM [facility] DERMATOPATHOLOGY LABORATORY Gross Description Specimen A: Received is one formalin filled container labeled with the patient's name and designated mid chest. The specimen consists of a shave measuring [id number]. Jar 0. Specimen B: Received is one formalin filled container labeled with the patient's name and designated left upper back. The specimen consists of a shave measuring [id number]. Jar 0. 0 1:50 PM [facility] DERMATOPATHOLOGY LABORATORY Microscopic Description Specimen A. SKIN, mid chest: The epidermis is mildly acanthotic. There is a lichenoid infiltrate with vacuolar changes of basilar keratinocytes and scattered necrotic keratinocytes. Specimen B. SKIN, left upper back: The epidermis is mildly acanthotic. There is a lichenoid infiltrate with vacuolar changes of basilar keratinocytes and scattered necrotic keratinocytes. 0 1:50 PM [facility] DERMATOPATHOLOGY LABORATORY Disclaimer An external and internal positive and negative controls are appropriate for the histochemical, immunohistochemical and immunofluorescence stain(s) in this case (if any), except where stated explicitly. The performance characteristics of the stain(s) cited in this report were developed and its performance characteristic determined by the Dermatopathology Laboratory at [facility], directed by Dr. Georgie Barr. These tests need not be, and therefore are not, approved by the [place] Food and Drug Administration. The tests are used for clinical purposes. Billing Codes Specimen Charges Stain Charges 67970 57552 1 1 0 1:50 PM [facility] DERMATOPATHOLOGY LABORATORY Embedded Images 0 1:50 PM [facility] DERMATOPATHOLOGY LABORATORY Pathology/Cytology TISSUE SPECIMEN FROM SKIN / Unknown 08/28/2019 08/29/2019 7:01 AM [facility] Miscellaneous samples (specimen) TISSUE SPECIMEN FROM SKIN / Unknown 08/28/2019 08/29/2019 7:01 AM [facility] Kiana Arambula DO LAB - PATHOLOGY/C YTOLOGY ORDERABLES DERMATOPATHOLOGY LABORATORY [facility] - Department of Dermatology [address] [place] [address], 5th Floor Lab [address] [phone] documented in this encounter Visit Diagnoses Not on filedocumented in this encounter
--- OUTSIDE RECORDS SUMMARY | 2024-11-22 08:58 | XMS_ITS | Clinical Summary ---
Author Organization [facility] [employer] Address [address] [address] Care Team Providers Care Wire Insulator Name Role Phone Unavailable Primary Care Provider Unavailabl e Source Comments [facility] [employer],non-owned Affiliates and Associated Physician Practices is amultiple site organization consisting of ambulatory clinics and hospital sitesin [place], [place], [place] and [place]. This disclosure is being madepursuant to the Care Everywhere program and may not contain all information available regarding this patient. Last updated 18.[facility] [employer] Social History Tobacco Use Types Packs/Day Years Used Date Smoking Tobacco: Never Assessed Sex and Gender Information Value Date Recorded Sex Assigned at Not on file Gender Identity Not on file Sexual Orientation Not on file Plan of Treatment Health Maintenance Due Date Last Done Comments BONE DENSITY TESTING 1950 COLOGUARD (AGES 45-75) - COL ON CA SCREENING 1950 COLON MONITORING 1952 COLONOSCOPY - COLON CA SCREENING 1952 CT COLONOGRAPHY - COLON CA SCREENING 1950 Colorectal Cancer Screening 1950 FIT - COLON CA SCREENING 1952 FLEX SIG - COLON CA SCREENING 1952 LIPID TESTING 1952 MAMMOGRAM 1952 HEPATITIS C SCREENING 07/16/1970 DTAP/TDAP/TD VACCINES (1 - Tdap) 1971 PNEUMOCOCCAL VACCINE 50+ (1 of 1 - PCV) 2002 ZOSTER VACCINE (1 of 2) 2002 COVID-19 VACCINE ( - 2023-2 5 season) 2024 DEPRESSION SCREENING 08/16/2024 INFLUENZA VACCINE (Season Ended) 2025 Respiratory Syncytial Virus (RSV) Vaccine Pt: or over 60 yrs (1 - 1-dose 75+ series) 2027 HEPATITIS B VACCINE Aged Out No longe r eligible based on patient's age to complete this topic HIB VACCINE Aged Out No longer eligi ble based on patient's age to complete this topic HPV VACCINE Aged Out No longer eligi ble based on patient's age to complete this topic MENINGOCOCCAL (Group B) VACC INE SHARED DECISION-MAKING Aged Out No longer eligibl e based on patient's age to complete this topic MENINGOCOCCAL GROUPS A/C/Y/W VACCINE Aged Out No longer eligible b ased on patient's age to complete this topic
--- OUTSIDE RECORDS SUMMARY | 2024-11-22 08:58 | XMS_ITS | Data Portability ---
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 Domestic Partner Phone Father Name Tube Trailer Filler Status 06/26/20 20 1 CLOSED Fetus Data First Name Last Name Admitted to NICU Weight (g) Sex Living Outcome Pediatric Complications Fetus ID Race Codes Race Delivery Type 3231.84 3 F Full Term 6051 Vaginal Delivery Kelvin Calculation Initial Kelvin Date Initial Exam Date Initial Exam Provider Initial Ultrasound Date Last Menstrual Period Date Ultra Sound Weeks Gestation 0 Eighteen To Twenty Week Kelvin Update Ultra Sound Date Fundal Height At Umbil Quickening Date Ultra Sound Latest Weeks Gestation Final Kelvin Confirmed By Final Kelvin Confirmed Date Final Kelvin Date Ultra Sound Latest Days Gestation 0 0 Menstrual History Last Menstrual Date Menses Monthly On Bcp Conception Prior Menses Frequency Hcg Plus Date Menarche Onset Age Delivery Information Delivery Date Delivery Type Labor Anesthesia Weeks Gestation Incision Type Labor Labor Length Hrs Delivered By Post Complications Tubal Sterilization Discharge Date Comments 7 Discharge Information Feeding Method Contraceptive Method Maternal HG B and HCT Levels Ob Episode Information Episode Created Date Number of Fetuses Patient Bloodtype Patient rh Status Prepregnancy Weight lbs Domestic Partner Domestic Partner Phone Father Name Tube Trailer Filler Status 06/26/20 20 1 CLOSED Fetus Data First Name Last Name Admitted to NICU Weight (g) Sex Living Outcome Pediatric Complications Fetus ID Race Codes Race Delivery Type 3231.84 3 F Full Term 6052 Vaginal Delivery Kelvin Calculation Initial Kelvin Date Initial Exam Date Initial Exam Provider Initial Ultrasound Date Last Menstrual Period Date Ultra Sound Weeks Gestation 0 Eighteen To Twenty Week Kelvin Update Ultra Sound Date Fundal Height At Umbil Quickening Date Ultra Sound Latest Weeks Gestation Final Kelvin Confirmed By Final Kelvin Confirmed Date Final Kelvin Date Ultra Sound Latest Days Gestation 0 0 Menstrual History Last Menstrual Date Menses Monthly On Bcp Conception Prior Menses Frequency Hcg Plus Date Menarche Onset Age Delivery Information Delivery Date Delivery Type Labor Anesthesia Weeks Gestation Incision Type Labor Labor Length Hrs Delivered By Post Complications Tubal Sterilization Discharge Date Comments 6 Discharge Information Feeding Method Contraceptive Method Maternal HG B and HCT Levels Ob Episode Information Episode Created Date Number of Fetuses Patient Bloodtype Patient rh Status Prepregnancy Weight lbs Domestic Partner Domestic Partner Phone Father Name Tube Trailer Filler Status 06/26/20 20 1 CLOSED Fetus Data First Name Last Name Admitted to NICU Weight (g) Sex Living Outcome Pediatric Complications Fetus ID Race Codes Race Delivery Type 3231.84 3 M Full Term 6050 Vaginal Delivery Kelvin Calculation Initial Kelvin Date Initial Exam Date Initial Exam Provider Initial Ultrasound Date Last Menstrual Period Date Ultra Sound Weeks Gestation 0 Eighteen To Twenty Week Kelvin Update Ultra Sound Date Fundal Height At Umbil Quickening Date Ultra Sound Latest Weeks Gestation Final Kelvin Confirmed By Final Kelvin Confirmed Date Final Kelvin Date Ultra Sound Latest Days Gestation 0 0 Menstrual History Last Menstrual Date Menses Monthly On Bcp Conception Prior Menses Frequency Hcg Plus Date Menarche Onset Age Delivery Information Delivery Date Delivery Type Labor Anesthesia Weeks Gestation Incision Type Labor Labor Length Hrs Delivered By Post Complications Tubal Sterilization Discharge Date Comments 5 placenta accreta Discharge Information Feeding Method Contraceptive Method Maternal HG B and HCT Levels
--- OUTSIDE RECORDS SUMMARY | 2024-11-22 08:59 | XMS_ITS | Clinical Summary ---
Author Organization [facility] Address [address] [place] [id number] Care Team Providers Care Roof Plumber Name Role Phone No, Physician Primary Care Provider [phone] Allergies Active Allergy Reactions Criticality Noted Date Comments Peanut Other (See comments) Low 05/19/2021 Soybean Other (See comments) Low 05/19/2021 [place] Oil Other (See comments) Low 05/19/2021 Medications loratadine (CLARITIN) 10 mg tablet Rx: Claritin Active multivit with minerals/lutein (MULTIVITAMIN 50 PLUS ORAL) Rx: Multivitamin Active ibuprofen (ADVIL,MOTRIN) suspension 100 mg/5 mL Rx: Ibuprofen Active Active Problems No known active problems Encounters Date Type Department Care Team Description 11/17/2024 Telephone [facility] Orthopedics and Sports Medicine [address] [place] [address] [address] [place] [address] Remedios High MD 11/16/2024 8:30 AM CDT Office Visit [facility] Hand Surgery [address] [place] [address] [address] [place] [address] Remedios High MD Right hand pain (Primary Dx) 11/16/2024 7:56 AM CDT - 11/16/2024 11:59 PM CDT Hospital Encounter [facility] Di[facility] Imaging [address] [place] [phone] Right hand pain Discharge Disposition: Discharge to home or self care from Last 3 Months Social History Tobacco Use Types Packs/Day Years Used Date Smoking Tobacco: Never Comments Unknown Sex and Gender Information Value Date Recorded Sex Assigned at Not on file 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 Gender Identity Not on file Sexual Orientation Not on file Obstetrics History Plan of Treatment Health Maintenance Due Date Last Done Comments Breast Cancer Screening-Mammogram 1952 Colon Cancer Screening-Colonoscopy 1950 Depression Screening 1952 Fall Risk Assessment 1950 Hepatitis C Screening 1950 Osteoporosis Screening-Bone Density Scan 1952 Hepatitis B Screening 1970 DTaP/Tdap/Td Vaccine (1 - Tdap) 01/20/1992 2 Pneumococcal vaccine 65+ (1 of 1 - PCV) 2002 Well Visit 65+ 2017 Influenza Vaccine (Season Ended) 2025 04/25/2020, 05/13/2016, 06/03/2015 Zoster Vaccine Completed 08/14/2019, 03/16, 01/10/2013 Procedures Procedure Name Priority Date/Time Associated Diagnosis Comments XR HAND RIGHT 3 OR MORE VIEWS Schedule Routine, Read Routine (OP Routine) 11/16/2024 8:14 AM CDT Right hand pain from Last 3 Months Results * XR Hand Right 3 or More Views (11/16/2024 8:14 AM CDT) Anatomical Region Laterality Modality Upper Extremities, Hand Right Computed Radiography 11/21/2024 10:0 4 PM CDT Narrative 11/21/2024 10:06 PM CDT EXAM DESCRIPTION: XR HAND RIGHT 3 OR MORE VIEWS REASON FOR STUDY: pain 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 COMPARISON: No comparison. FINDINGS: BONES/JOINTS: There is no acute fracture, malalignment or osseous abnormality. Mild interphalangeal arthritic change most evident at the distal interphalangeal joint of the 2nd digit. SOFT TISSUES: Within normal limits. IMPRESSION: No acute osseous abnormality. Mild interphalangeal arthritic change most evident at the distal interphalangeal joint of the 2nd digit. 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 COMPARISON: No comparison. FINDINGS: BONES/JOINTS: There is no acute fracture, malalignment orosseous abnormality. Mild interphalangeal arthritic change most evident at thedistal interphalangeal joint of the 2nd digit. SOFT TISSUES: Within normal limits. IMPRESSION: No acute osseous abnormality. Mild interphalangeal arthritic change most evident at the distal interphalangeal joint of the 2nddigit. THIS IS AN ELECTRONICALLY VERIFIED FINAL REPORT 11/21/2024 10:06 PM - Electronically signed by Kylie MATA T: Report ID: [id number] Reading Location: [id number] Remedios High MD IMG XR PROCEDURES Final R esult from Last 3 Months Insurance [facility] RE[facility] [employer] MEDICARE GOLD Care Teams Roof Plumber Relationship Specialty Start Date End Date No, Physician PCP - General 01/31/19
--- OUTSIDE RECORDS SUMMARY | 2024-11-22 08:59 | XMS_ITS | Referral Summary ---
Author Organization [facility] Address [address] [place] [phone] Care Team Providers Care Tile Burner Name Role Phone No, Physician Primary Care Provider [phone] Encounters Date Type Department Care Team Description 11/17/2024 Telephone [facility] Orthopedics and Sports Medicine [address] [place] [address] [address] [place] [address] Remedios High MD 11/16/2024 7:56 AM CDT - 11/16/2024 11:59 PM CDT Hospital Encounter [facility] Di[facility] Imaging [address] [place] [phone] Right hand pain Discharge Disposition: Discharge to home or self care 11/16/2024 8:30 AM CDT Office Visit [facility] Hand Surgery [address] [place] [address] [address] [place] [address] Remedios High MD Right hand pain (Primary Dx) from Last 3 Months Allergies Active Allergy Reactions Criticality Noted Date Comments Peanut Other (See comments) Low 05/19/2021 Soybean Other (See comments) Low 05/19/2021 [place] Oil Other (See comments) Low 05/19/2021 Medications loratadine (CLARITIN) 10 mg tablet Rx: Claritin Active multivit with minerals/lutein (MULTIVITAMIN 50 PLUS ORAL) Rx: Multivitamin Active ibuprofen (ADVIL,MOTRIN) suspension 100 mg/5 mL Rx: Ibuprofen Active Active Problems No known active problems Social History Tobacco Use Types Packs/Day Years Used Date Smoking Tobacco: Never Comments Unknown Sex and Gender Information Value Date Recorded Sex Assigned at Not on file 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 T: Report ID: [id number] Reading Location: [place] [id number] [place] Remedios High MD IMG XR PROCEDURES Final R esult from Last 3 Months Insurance [facility] RE[facility] AET[employer] MEDICARE GOLD Care Teams Tile Burner Relationship Specialty Start Date End Date No, Physician PCP - General 01/31/19
== END 2024-11-22 08:34 | disposition home or self-care (01) ==
LOC: ANHIMG 08:36
PROVIDERS: PCP Family Medicine; Visit Provider Nurse Practitioner Obstetrics & Gynecology
DX: Z12.31 Encounter for screening mammogram for malignant neoplasm of breast (principal)
CPT/HCPCS: 77063; 77067

== ENCOUNTER 2025-02-06 08:19 | Outpatient (CLI) | payer MEDICARE, SELFPAY ==
[2025-02-06 13:54] LABS: Alanine Aminotransferase 19 U/L (6-35); Albumin Level 4.2 g/dL (3.5-5.1); Alkaline Phosphatase 61 U/L (38-126); Anion Gap 7 mmol/L (4-12); Aspartate Amino Transferase 51 U/L (14-36); Bilirubin,Total 0.7 mg/dL (0.2-1.3); Blood Urea Nitrogen 15 mg/dL (7-17); Calcium 9.4 mg/dL (8.4-10.2); Carbon Dioxide 26 mmol/L (22-30); Chloride 107 mmol/L (98-107); Estimated Glomerular Filt Rate 59; Glucose 90 mg/dL (65-110); Sodium 140 mmol/L (137-145)
[2025-02-06 14:03] LABS: Hemoglobin A1C 5.9 % (<5.7)
== END 2025-02-06 08:20 | disposition home or self-care (01) ==
PROVIDERS: PCP Family Medicine; Visit Provider Family Medicine
DX: E78.5 Hyperlipidemia, unspecified (principal); R73.03 Prediabetes; Z79.899 Other long term (current) drug therapy
CPT/HCPCS: 36415; 80053; 83036